=== PATIENT | male | born 1995 | race African-American/Black ===

== ENCOUNTER 2021-12-13 16:05 | Emergency (ER) | payer MEDICAID ==
[~2021-12-13] VITALS: Ht 170.2 cm; Wt 82.1 kg
[2021-12-13 16:23] VITALS: BP 118/65
--- NOTE | 2021-12-13 16:44 | NUR ---
25/M PRESENTS TO ED WITH C/O RASH TO LEFT HAND X5 MONTHS S/P SCRATCHING IT ON HIS STEERING WHEEL COVER. STATES COVER HAS RHINESTONES AND HE IS "ALLERGIC TO FAKE JEWELRY." DENIES SOB, PAIN.
[2021-12-13] MEDS ORDERED: PROM118S5 PO (16:47)
[2021-12-13] MEDS ORDERED: HYDR28CR38 TP (16:47)
[2021-12-13 17:14] VITALS: BP 118/65
--- NOTE | 2021-12-13 17:14 | NUR ---
Patient discharged with v/s stable. Written and verbal after care instructions ABOUT UPPER RESPIRATORY INFECTION AND CONTACT DERMATITIS given and explained. Patient alert, oriented and verbalized understanding of instructions. Ambulatory with steady gait. All questions addressed prior to discharge. ID band removed. Patient advised to follow up with PMD. Rx of CORTIZONE-10 1% AND PROMETHAZINE-DM SYRUP given. Patient educated on indication of medication including possible reaction and side effects. Opportunity to ask questions provided and answered.
== END 2021-12-13 17:14 | disposition home or self-care (01) ==
LOC: MED 16:05
DX: L25.9 Unspecified contact dermatitis, unspecified cause (principal); J06.9 Acute upper respiratory infection, unspecified; R03.0 Elevated blood-pressure reading, without diagnosis of hypertension; Z72.89 Other problems related to lifestyle
CPT/HCPCS: 99283

== ENCOUNTER 2022-01-11 07:25 | Emergency (ER) | payer MEDICAID ==
[~2022-01-11] VITALS: Ht 170.2 cm; Wt 83.5 kg
[~2022-01-11 07:25] MED LIST: HYDR28CR38 TP; PROM118S5 PO
[2022-01-11 07:31] VITALS: BP 145/94
--- NOTE | 2022-01-11 07:37 | NUR ---
PT AMBULATED TO THE BATHROOM WITH STEADY GAIT
--- NOTE | 2022-01-11 08:00 | NUR ---
pt c/o urinary frequency x1 week, tx for std states symptoms have not improved. urine collected.
[2022-01-11 09:35] VITALS: BP 121/70
--- NOTE | 2022-01-11 09:36 | NUR ---
Patient discharged with v/s stable. Written and verbal after care instructions given and explained. Patient verbalized understanding. Ambulatory with steady gait. All questions addressed prior to discharge. Advised to follow up with PMD.
== END 2022-01-11 09:36 | disposition home or self-care (01) ==
LOC: MED 07:25
DX: R35.0 Frequency of micturition (principal)
CPT/HCPCS: 81002; 99282